=== PATIENT | female | born 1960 | race Caucasian/White ===

== ENCOUNTER 2023-07-02 05:06 | Day surgery (SDC) | payer OTHER ==
[2023-06-30 11:27] VITALS: BMI 34.1
[2023-07-02] MEDS ORDERED: LIDOCAINE HCL 1%, 10 MG/ML (20ML VIAL) ONE ×2 (09:09→10:27)
[2023-07-02] MEDS ORDERED: HEPARIN NA (PORCINE) 5,000 UNITS/ML 1ML VIAL ONE (10:27)
[2023-07-02] MEDS ORDERED: MIDAZOLAM HCL 2 MG/2 ML SINGLE DOSE VIAL ONE ×2 (10:57→10:59)
[2023-07-02] MEDS ORDERED: ceFAZolin 2 GRAM PREMIX BAG IVPB ONE (11:16)
[2023-07-02] MEDS ORDERED: PROPOFOL 40 ML ONE (11:22)
[2023-07-02] MEDS ORDERED: PROPOFOL 20 ML ONE (11:23)
[2023-07-02] MEDS ORDERED: LIDOCAINE HCL 1%, 10 MG/ML (20ML VIAL) SQ ONE (11:38)
[2023-07-02] MEDS ORDERED: ONDANSETRON 4 MG/2 ML VIAL IVPUSH PRN (12:12)
[2023-07-02] MEDS ORDERED: LACTATED RINGERS SOLUTION 1,000 ML IV SCH (12:15)
[2023-07-02 15:22] VITALS: RESP 18
[2023-07-02 15:47] VITALS: BP 118/60; PULSE 70; TEMP 98.3
== END 2023-07-02 15:00 | disposition home or self-care (01) ==
LOC: JASU-SURG 05:06
PROVIDERS: ATTEND Surgery
PROC: 05H533Z Insertion of Infusion Device into Right Subclavian Vein, Percutaneous Approach (ICD-10-PCS; 2023-07-02)
PROC: B516ZZA Fluoroscopy of Right Subclavian Vein, Guidance (ICD-10-PCS; 2023-07-02)
PROC: 0JH60WZ Insertion of Totally Implantable Vascular Access Device into Chest Subcutaneous Tissue and Fascia, Open Approach (ICD-10-PCS; principal; 2023-07-02 11:00)
DX: C50.911 Malignant neoplasm of unspecified site of right female breast (principal)
CPT/HCPCS: 36561; C1788; 71045-TC-FY; 76000-TC-FY; 94760; C1751; J1644

== ENCOUNTER 2024-01-05 04:19 | Inpatient (IN) | payer OTHER ==
[2023-12-30 15:02] VITALS: BMI 30.2
[2024-01-05] MEDS: METHYLENE BLUE 1% 10 MG/1 ML VIAL NR ONE
[2024-01-05] MEDS ORDERED: METHYLENE BLUE 50 MG/10 ML AMPUL ONE (08:04)
[2024-01-05] MEDS ORDERED: ISOSULFAN BLUE 50 MG/5 ML VIAL SQ ONE (08:05)
[2024-01-05] MEDS ORDERED: PROPOFOL 20 ML ONE (10:51)
[2024-01-05] MEDS ORDERED: SODIUM CHLORIDE 0.9% P/F 10 ML VIAL IJ ONE (10:52)
[2024-01-05] MEDS ORDERED: GLYCOPYRROLATE 0.2 MG/1 ML VIAL ONE (10:52)
[2024-01-05] MEDS ORDERED: ceFAZolin SODIUM 1 GM VIAL ONE ×2 (10:52→19:20)
[2024-01-05] MEDS ORDERED: LIDOCAINE HCL/PF 2% SDV 5ML VIAL ONE (10:52)
[2024-01-05] MEDS: ceFAZolin SODIUM 1 GM VIAL IVPB ONE (11:07)
[2024-01-05] MEDS ORDERED: ONDANSETRON 4 MG/2 ML VIAL ONE (11:12)
[2024-01-05] MEDS ORDERED: DEXAMETHASONE SOD PHOSPHATE 4 MG/1 ML VIAL ONE (11:12)
[2024-01-05] MEDS ORDERED: KETOROLAC TROMETHAMINE 30 MG/1 ML VIAL ONE ×2 (12:14→12:18)
[2024-01-05] MEDS ORDERED: ZOLPIDEM TARTRATE 5 MG TABLET PO PRN (12:19)
[2024-01-05] MEDS ORDERED: ONDANSETRON 4 MG/2 ML VIAL IVPUSH PRN ×2 (12:19→12:27)
[2024-01-05] MEDS ORDERED: PROMETHAZINE HCL 25 MG/1 ML VIAL IVPB PRN (12:27)
[2024-01-05] MEDS ORDERED: DEXTROSE 5%-0.45% SALINE 1,000 ML IV SCH (12:30)
[2024-01-05] MEDS ORDERED: LACTATED RINGERS SOLUTION 1,000 ML IV SCH (12:30)
[2024-01-05] MEDS ORDERED: ONDANSETRON 4 MG/2 ML VIAL IVPB PRN (13:42)
[2024-01-05] MEDS ORDERED: MEPERIDINE HCL CARPU-JECT 50 MG/1 ML DISP.SYRIN IM PRN (13:44)
[2024-01-05] MEDS ORDERED: MEPERIDINE HCL CARPU-JECT 25 MG/1 ML DISP.SYRIN IM PRN (13:44)
[2024-01-05] MEDS: ACETAMINOPHEN 1000 MG/100 ML BAG IVPB ONE (14:06)
[2024-01-05] MEDS: ACETAMINOPHEN INJECTION 100 ML IVPB ONE (14:06)
[2024-01-05] MEDS ORDERED: oxyCODONE HCL 5 MG TABLET PO PRN ×2 (14:06)
[2024-01-05] MEDS ORDERED: CEFAZOLIN 1 GM in DEXTROSE 5%-WATER - 50 ML IVPB SCH (18:00)
[2024-01-05] MEDS: CEFAZOLIN 1 GM in DEXTROSE 5%-WATER - 50 ML IVPB SCH ×2 (19:25)
[2024-01-05] MEDS: LACTATED RINGERS SOLUTION 1,000 ML/1,000 ML INFUS.BAG IV SCH (21:50)
[2024-01-06] MEDS: ACETAMINOPHEN 325 MG TABLET (FP) PO PRN (03:18)
[2024-01-06 05:36] VITALS: RESP 18
[2024-01-06] MEDS: ACETAMINOPHEN 500 MG TABLET (FP) PO PRN (10:26)
[2024-01-06] MEDS: FUROSEMIDE 40 MG TABLET (FP) PO SCH (10:28)
[2024-01-06 10:37] LABS: HEMATOCRIT 31.1 % (32.4-45.2); HEMOGLOBIN 10.2 GM/dL (10.7-15.3); MCH 28.6 pg (25.7-33.7); MEAN CELL VOLUME 86.8 fl (80-96); PLATELET COUNT 170 10^3/uL (134-434); RBC 3.58 M/mm3 (3.60-5.2); RDW 17.8 % (11.6-15.6); WHITE BLOOD COUNT 5.4 K/mm3 (4.0-10.0)
[2024-01-07] MEDS: POLYETHYLENE GLYCOL (HEALTHYLAX) 3350 17 GM PACKET PO SCH (09:53)
[2024-01-07 16:22] VITALS: BP 114/46; PULSE 85; TEMP 98.8
== END 2024-01-07 17:11 | disposition home or self-care (01) | DRG 582 ==
LOC: JASUSAT 04:19 → J2C 12:20 → J5S 19:55
PROVIDERS: ADMIT Surgery; ATTEND Surgery
PROC: 0HTU0ZZ Resection of Left Breast, Open Approach (ICD-10-PCS; principal; 2024-01-05 10:30)
DX: C50.412 Malignant neoplasm of upper-outer quadrant of left female breast (principal); C77.3 Secondary and unspecified malignant neoplasm of axilla and upper limb lymph nodes; Z17.1 Estrogen receptor negative status [ER-]
CPT/HCPCS: 36415; 85027; 86850; 86900; 86901; 88309-TC; 94760; J0131; Q9968